=== PATIENT | male | born 1995 | race Caucasian/White ===

== ENCOUNTER 2018-04-09 19:31 | Inpatient (IN) ==
[2018-04-09] MEDS ORDERED: Lidocaine -MPF 1% 5 ML AMPUL ONE (20:08)
[2018-04-09] MEDS ORDERED: *HR* Midazolam HCl 2 MG/2 ML VIAL IVP ONE (20:12)
[2018-04-09] MEDS ORDERED: *HR* FentaNYL (PF) 100 MCG/2 ML VIAL IVP ONE ×2 (20:12→21:13)
--- NOTE | 2018-04-09 20:12 | Emergency Department Note ---
Disposition Clinical Impression: Pneumothorax Qualifiers: Pneumothorax type: spontaneous, primary Qualified Code(s): J93.11 - Primary spontaneous pneumothorax Disposition: Admitted As Inpatient Condition: Good Referrals: NONE,PCP [Primary Care Provider] - Forms: ED Satisfaction Letter SOB HPI - General Chief Complaint: ED Shortness of Breath/Dyspnea Stated Complaint: left pneumothorax per [facility] Time Seen by Provider: 04/09/18 19:54 Source: patient Mode of arrival: private vehicle Limitations: no limitations Nursing Notes Reviewed: Yes Vital Signs Reviewed: Yes - History of Present Illness 22-year-old male no medical history persisted the ER after findings of a left pneumothorax urgent care. Reports abrupt onset of left-sided chest pain and shortness of breath roughly 2 hours ago. Denies any trauma. No prior history of pneumothorax. He does not smoke. No recent coughing gagging or choking episodes. He was seen at urgent care had x-rays demonstrating a roughly 20% left pneumothorax. He reports that his symptoms did seem to worsen a little since the onset. No other complaints. Pt Subjective Complaint: shortness of breath, chest pain Onset (ago): hour(s) Severity: moderate Consistency/Duration: constant Improves with: nothing Worsens with: nothing Associated symptoms: Reports: chest pain Treatment prior to arrival: none Cough present: No - Related Data Home oxygen amount: none Home Medications Medication Instructions Recorded Confirmed No Known Home Drugs 04/09/18 04/09/18 Allergies Allergy/AdvReac Type Severity Reaction Status Date / Time No Known Allergies Allergy Verified 04/09/18 20:21 All systems ED: reviewed and negative except as stated. Constitutional: Denies: fever Cardiovascular: Reports: chest pain Respiratory: Reports: dyspnea. Denies: cough Gastrointestinal: Denies: nausea, vomiting Past Medical History - Past Medical History Attestation: Yes The following information was validated with the patient. Source: patient Medical history: Reports: non-contributory Surgical history: Reports: no surgical history Psychiatric history: Reports: no psych history - Social History Smoking Status: Current every day smoker Smokeless Tobacco Status: No Alcohol use: Reports: occasionally Drug use: Reports: none Physical Exam - General Limitations: no limitations General appearance: alert, in no apparent distress - Head Head exam: atraumatic, normocephalic - Eye Eye exam: Present: normal appearance - ENT ENT exam: normal exam - Neck Neck exam: Present: normal inspection - Chest Chest inspection: Present: normal inspection, symmetric chest wall rise - Respiratory Respiratory exam: Present: normal lung sounds bilaterally - Cardiovascular Cardiovascular exam: Present: regular rate, normal rhythm, normal heart sounds - Abdominal Exam Abdominal exam: Present: soft, Non-Tender. Absent: tenderness - Extremities Exam Extremities exam: Present: normal inspection, full ROM - Expanded Upper Extremity Exam Shoulder exam: Present: normal inspection, full ROM Arm exam: Present: normal inspection, full ROM Elbow exam: Present: normal inspection, full ROM Forearm/Wrist exam: Present: normal inspection, full ROM Hand exam: Present: normal inspection, full ROM - Expanded Lower Extremity Exam Hip/Pelvis exam: Present: normal inspection, full ROM Upper leg exam: Present: normal inspection, full ROM Knee exam: Present: normal inspection, full ROM Lower leg exam: Present: normal inspection, full ROM Ankle exam: Present: normal inspection, full ROM Foot/toe exam: Present: normal inspection, full ROM - Skin Skin exam: Present: warm, dry Course Course Narrative: Patient seen and examined. Vital signs reviewed. Imaging reviewed. Plan for left chest tube placement. Vital Signs Temperature 98.6 F 04/09/18 19:39 Pulse Rate 72 04/09/18 19:39 Respiratory Rate 20 04/09/18 19:39 Blood Pressure 150/80 04/09/18 19:39 O2 Sat by Pulse Oximetry 100 04/09/18 19:39 Temperature 98.6 F 04/09/18 19:39 Pulse Rate 61 04/09/18 21:33 Respiratory Rate 16 04/09/18 21:33 Blood Pressure 116/61 04/09/18 21:33 O2 Sat by Pulse Oximetry 100 04/09/18 21:33 Oxygen Delivery Oxygen Delivery Nasal Cannula Procedures - Chest Tube Chest Tube 1 Chest Tube Location: left Size of Tube (cm): 7 Chest Tube Prep: sterile drapes applied Local Anesthetic: lidocaine 2% Amount of Anesthesia Used (mL): 7 Incision Made With: #11 blade Post Procedure: sutured to skin, sterile dressing applied Tube Drainage: none Post Procedure CXR?: Yes Patient Tolerated Procedure: Yes Progress: Improvement of pneumothorax Shortness of Breath/Dyspnea - [facility] Narrative Medical decision making narrative: 22-year-old male presents for spontaneous pneumothorax from urgent care. Hemodynamically stable. Left pneumo dart tube inserted without complication. Pain controlled here. Admitted to the hospitalist service. - Radiology Data Radiology results reviewed: Yes I reviewed the patient's radiology results. Chest X-Ray 04/09/18 20:53 IMPRESSION: 1. Significant improvement with residual trace left apical pneumothorax status post left percutaneous chest tube. D/ / Star Kahn MD / Star Kahn MD Interpreting Provider: Star Kahn MD Rodolfo - Rodolfo Situation: Demographics, MOA Background: Presenting Complaint, Relevant PMH, Meds, & Allergies Assessment: Vital Signs, Course and respsone to treatment, Exam Concerns, Patient/Family Expectation, Pertinant Lab Results Recommendation: Barrier(s) to disposition, Recommendation based on pending studies, treatments, or consults Rodolfo Report Given to: Dr. Maryam Reynolds Repor Time: 21:37
[2018-04-09] MEDS ORDERED: Lidocaine -MPF 2% 5 ML VIAL INFILT ONE (20:14)
--- NOTE | 2018-04-09 21:00 | Emergency Department Note ---
Disposition Clinical Impression: Pneumothorax Qualifiers: Pneumothorax type: spontaneous, primary Qualified Code(s): J93.11 - Primary spontaneous pneumothorax Disposition: Admitted As Inpatient Condition: Good General Adult HPI - General Chief complaint: ED Shortness of Breath/Dyspnea Stated complaint: left pneumothorax per [facility] Time Seen by Provider: 04/09/18 19:54 Source: patient Mode of arrival: private vehicle Limitations: no limitations Nursing Notes Reviewed: Yes Vital Signs Reviewed: Yes - History of Present Illness Pain Scale: 3 - Related Data Home Medications Medication Instructions Recorded Confirmed No Known Home Drugs 04/09/18 04/09/18 Allergies Allergy/AdvReac Type Severity Reaction Status Date / Time No Known Allergies Allergy Verified 04/09/18 20:21 Constitutional: Denies: fever Cardiovascular: Reports: chest pain Respiratory: Reports: dyspnea. Denies: cough Gastrointestinal: Denies: nausea, vomiting Past Medical History - Past Medical History Medical history: Reports: non-contributory Surgical history: Reports: no surgical history Psychiatric history: Reports: no psych history - Social History Smoking Status: Current every day smoker Smokeless Tobacco Status: No Alcohol use: Reports: occasionally Drug use: Reports: none Physical Exam - General Limitations: no limitations General appearance: alert, in no apparent distress Course Vital Signs Temperature 98.6 F 04/09/18 19:39 Pulse Rate 72 04/09/18 19:39 Respiratory Rate 20 04/09/18 19:39 Blood Pressure 150/80 04/09/18 19:39 O2 Sat by Pulse Oximetry 100 04/09/18 19:39 Temperature 98.6 F 04/09/18 19:39 Pulse Rate 61 04/09/18 21:33 Respiratory Rate 16 04/09/18 21:33 Blood Pressure 116/61 04/09/18 21:33 O2 Sat by Pulse Oximetry 100 04/09/18 21:33 Oxygen Delivery Oxygen Delivery Nasal Cannula Medical Decision Making - Radiology Data Radiology results reviewed: Yes I reviewed the patient's radiology results. Chest X-Ray 04/09/18 20:53 IMPRESSION: 1. Significant improvement with residual trace left apical pneumothorax status post left percutaneous chest tube. D/ / Star Kahn MD / Star Kahn MD Interpreting Provider: Star Kahn MD - EKG Data EKG #1 EKG attestation: Yes I reviewed and interpreted this EKG. EKG results narrative: EKG obtained at the urgent care clinic prior to arrival here was reviewed by me and showed a sinus rhythm with ventricular rate of 80. No ST segment elevation or depression. No arrhythmia or ectopy. Normal EKG. Attestation Statement - Attestation Attestation: I, Jim Murphy MD, personally evaluated this patient and discussed their management with the resident physician. I reviewed the resident's note and agree with the documented findings, medical decision making, and plan of care. 22-year-old male transferred here from the urgent care clinic for a spontaneous left pneumothorax. Patient presented there with acute onset earlier this afternoon of sharp left-sided chest pain or shortness of breath. No history of any injury or trauma. No prior history of pneumothorax. Patient denies any cough or fever. On examination patient is a well-developed well-nourished well-appearing male in no acute distress. He is alert and oriented 3. There is no cyanosis or diaphoresis. Breath sounds are very minimally decreased in the left upper lung. No rales or wheezes. Heart regular rate and rhythm. No murmur or ectopy. Abdomen soft and nontender with normal bowel sounds. A dark catheter was inserted into the left hemithorax by the resident, Dr. Cornejo, and the medical student assisting under my direct supervision. He tolerated the procedure well. Postprocedure x-ray showed good placement of the catheter with reexpansion of the lung. The hospitalist, Dr. Francisco, was consulted and accepted admission of the patient.
[2018-04-09] MEDS ORDERED: Ketorolac 30 MG/ML VIAL IVP ONE (22:54)
[2018-04-09] MEDS ORDERED: Naloxone 0.4 MG/ML INJ IVP PRN (22:56)
[2018-04-09] MEDS ORDERED: Ringers Solution, Lactated 1,000 ML IVC SCH (23:00)
--- NOTE | 2018-04-09 23:37 | Internal Med History&Physical ---
Date of Encounter: 04/09/18 Time of Encounter: 23:35 Internal Medicine - H&P: HPI Chief complaint: chest pain Admitted From: Home Plans for Post Hospital Care: Home History of present illness: Mr. Carrillo is a 22 year old male who denies any past medical history who presents on transfer from the urgent care clinic where he presented with acute onset left-sided chest pain with shortness of breath that commenced in the afternoon while he was driving. He denies a smoking history, history any injury or trauma to his chest wall. He denies coughing or having fever or congestion. In the clinic he was seen on x-ray to have pneumothorax that was initially 5% and progress to 20%. He was transferred here for further care where a chest tube was placed without any acute complications with adequate reexpansion of the lung seen on subsequent chest x-rays. He is now admitted for further observation. At this time he reports feeling well and states that he has moderate chest pain when he takes deep breaths only comfortable at rest. He denies any comorbidities, prior occasional smoker and again no trauma. Past Med Surg Social Fam HX - Past Medical History Medical history: non-contributory Psychiatric history: no psych history - Past Surgical History Surgical History: no surgical history - Social History Smoking Status: Current every day smoker Smokeless Tobacco Status: No Alcohol use: occasionally Drug use: none Internal Medicine - H&P: Meds No Known Home Drugs 04/09/18 [History] 3 Allergy/AdvReac Type Severity Reaction Status Date / Time No Known Allergies Allergy Verified 04/09/18 20:21 All Systems PM: A 10-system review of systems was performed and is negative for pertinent findings except as documented above in the HPI. - Constitutional Vitals: Temp Pulse Resp BP Pulse Ox 98.3 F 54 15 129/77 99 04/09/18 22:52 04/09/18 22:52 04/09/18 22:52 04/09/18 22:52 04/09/18 22:52 Exam: Vitals: Reviewed General: Well-developed male lying comfortably in bed in no acute distress. Skin: Warm and supple. HEENT: Moist mucous membranes. No conjunctivae pallor. Neck: No lymphadenopathy. No JVD. No carotid bruits. No palpable thyroid. Chest: Reduced thoracic expansion with no wheezes, rales or rhonchi auscultated. Catheter noted in the left upper chest wall attached to water seal with suction. Heart: Normal S1 & S2; rhythmic. No rubs or murmurs. Abdomen: Non-distended, soft and non-tender to palpation. No peritoneal reaction. Liver is normal in size. Spleen is not palpable. Extremities: No clubbing, cyanosis or edema. No calf tenderness. Normal distal pulses. Neurological: Awake, alert and oriented to person, place and time. No focal deficits. Psych: Appropriate affect and coherent speech - Assessment and plan (1) Pneumothorax on left Current Visit: No Status: Acute Assessment and plan: Spontaneously induced. No apparent risk factors. -Placed on close observation -Consult pulmonary for chest tube management -Pain control -IV fluids for insensible losses -Repeat chest x-ray in the morning. -Supplemental oxygen as needed and telemetry monitoring. (2) DVT prophylaxis Current Visit: Yes Status: Acute Assessment and plan: Subcutaneous heparin ordered. - Time Spent With Patient Total time spent is greater than 50% in coordination of care (as documented) at patient's floor/unit and/or counseling patient: 25 - 35 minutes
[2018-04-10] MEDS: *HR* OxyCODONE/APAP 5/325 TABLET PO PRN ×4 (00:13→23:53)
[2018-04-10] MEDS ORDERED: *HR* Morphine 2 MG/ML SYRINGE IVP ONE (01:22)
[2018-04-10 01:45] LABS: Basophils % 0.3 %; Eosinophils # 0.2 K/mcL (0.0-0.6); Eosinophils % 1.4 %; Hematocrit 41.2 % (37.5-50.1); Hemoglobin 14.4 g/dL (12.9-16.9); Immature Granulocytes % 0.3 % (0-4); Lymphocytes # 2.7 K/mcL (0.6-4.6); Lymphocytes % 23.8 %; Mean Corpuscular Hemoglobin 30.8 pg (28.0-33.3); Mean Corpuscular Volume 88.2 fL (83.0-100.0); Mean Platelet Volume 10.1 fL (9.4-12.4); Monocytes # 0.9 K/mcL (0.0-1.3); Monocytes % 7.6 %; Neutrophils # 7.6 K/mcL (1.6-8.9); Platelet Count 266 K/mcL (140-400); Red Blood Count 4.67 M/mcL (4.19-5.50); Red Cell Distribution Width 11.7 % (11.5-14.5); Segmented Neutrophils % 66.6 %
[2018-04-10 01:50] LABS: Prothrombin Time 11.7 Seconds (9.4-12.1)
[2018-04-10 01:53] LABS: Activated Partial Thrombo Time 35.7 Seconds (26.0-36.0)
[2018-04-10 02:10] LABS: Alanine Aminotransferase 30 Units/L (7-52); Albumin 4.5 g/dL (3.5-5.7); Alkaline Phosphatase 73 Units/L (34-104); Aspartate Amino Transferase 20 Units/L (13-39); BUN/Creatinine Ratio 13 (6-26); Bilirubin,Total 0.6 mg/dL (0.3-1.0); Blood Urea Nitrogen 12 mg/dL (6-20); Calcium 9.7 mg/dL (8.6-10.3); Carbon Dioxide 26 mEq/L (23-29); Chloride 104 mEq/L (98-107); Globulin 2.3 g/dL (2.4-3.5); Glucose 173 mg/dL (70-105); Osmolality,Calculated 292 (280-300); Potassium 3.7 mEq/L (3.5-5.1); Sodium 139 mEq/L (136-145); Total Protein 6.8 g/dL (6.4-8.9); eGFR For Non-African Americans > 60 (> 60)
[2018-04-10 03:10] LABS: Amphetamine Screen,Urine Negative ng/mL (Cutoff=1000); Barbiturate Screen,Urine Negative ng/mL (Cutoff=200); Benzodiazepines Screen,Urine Positive ng/mL (Cutoff=200); Cannabinoid Screen,Urine Negative ng/mL (Cutoff = 50); Cocaine Screen,Urine Negative ng/mL (Cutoff= 300); Opiate Screen,Urine Negative ng/mL (Cutoff=300); Phencyclidine Screen,Urine Negative ng/mL (Cutoff=25)
[2018-04-10] MEDS: *HR* Heparin 5,000 UNIT/ML VIAL SQ SCH ×2 (05:32→18:19)
--- NOTE | 2018-04-10 08:15 | Cardiothoracic Consult Note ---
Date of Encounter: 04/10/18 Time of Encounter: 12:45 Assessment and Plan (1) Pneumothorax Current Visit: Yes Status: Acute The patient is a 22-year-old otherwise healthy man who had sudden onset of left- sided chest pain and shortness of breath while driving yesterday. His evaluation at an urgent care facility revealed a left spontaneous pneumothorax. The pneumothorax progressed and he was transferred to [facility] for chest tube insertion. Currently, the chest tube has no air leak. Chest tube should remain on suction until the air leak stops and then placed to waterseal prior to removal. The assessment and plan as outlined above was discussed with the patient and/or family members who expressed understanding and agreement. All questions were answered. Pneumothorax type: spontaneous, primary - History of Present Illness Consult date: 04/10/18 Requesting physician: Brooks Francisco Consult reason: Chest tube management Chief complaint: Left spontaneous pneumothorax History of present illness: Mr. Carrillo is a 22 year old otherwise healthy man who experienced sudden onset of left sided chest pain and shortness of breath while driving yesterday. The patient was evaluated at an urgent care facility found to have a left spontaneous pneumothorax. Initially, the pneumothorax measured approximately 5 % of the chest volume; however, progressed to 20%. He was transferred to [facility] for further care. A chest tube was inserted in the emergency department with near complete resolution of the left spontaneous pneumothorax. I have been asked to follow the patient for chest tube management. Past Med Surg Social Fam HX - Past Medical History Medical history: non-contributory Psychiatric history: no psych history - Past Surgical History Surgical History: no surgical history - Social History Smoking Status: Former smoker Smokeless Tobacco Status: No Alcohol use: occasionally Drug use: none Occupational status: employed Current living situation: Home - Independent Activity Level: Independent ambulation, Very active Recent Out of Country Travel Within the Last 8 Weeks: No Exposure or Possible Exposure to Illness During Travel: No - Family History Grandmother Hx Family Cardiac Disorders: Yes ([place]) Medications and Allergies No Known Home Drugs 04/09/18 [History] 3 Allergy/AdvReac Type Severity Reaction Status Date / Time No Known Allergies Allergy Verified 04/09/18 20:21 All Systems Review: The remainder of the systems were reviewed and are negative Physical Examination Vital Signs, Last 4 Hours Pulse Resp BP Pulse Ox 04/10/18 08:06 65 15 110/61 97 General: Conversant, No Apparent Distress Neck: No JVD Cardiac: Reg Rate and Rhythm, Normal S1 and S2 Lungs: Normal Breath Sounds, No Wheeze, Rales, Rhonchi Neuro: Alert and responsive, No focal deficits noted, Motor nerves intact, Sensory nerves intact Vascular: Normal capillary refill Skin: No rashes noted on visualized skin Musculoskeletal: No Chest Wall Tenderness Extremities: No Clubbing, No Cyanosis, No Edema, Normal Pulses Results 04/10/18 01:19 04/10/18 01:19 Lab Results, Last 24 hours 04/10/18 04/10/18 04/10/18 01:19 01:19 01:19 WBC 11.4 H Hgb 14.4 Hct 41.2 Plt Count 266 INR 1.0 APTT 35.7 Sodium 139 Potassium 3.7 Chloride 104 Carbon Dioxide 26 BUN 12 Creatinine 0.90 Glucose 173 H Calcium 9.7 Total Bilirubin 0.6 AST 20 ALT 30 Alkaline Phosphatase 73 - Imaging Chest Xray: image reviewed (Normal cardiac size. Small left apical pneumothorax ) Consult Discharge Plan - Plan Referrals: NONE,PCP [Primary Care Provider] -
[2018-04-10] MEDS: Ketorolac 30 MG/ML VIAL IVP PRN ×2 (12:58→19:48)
--- NOTE | 2018-04-10 13:17 | Internal Med Progress Note ---
<Trinity Edouard - Last Filed: 04/10/18 13:38> Hospitalist Progress Note - Encounter Date of Encounter: 04/10/18 Time of Encounter: 13:14 - Subjective Interval History: Mr. Gonzales is a 22 y/o M with no past medical history presenting to [facility] on 04/09 for SOB and left sided chest pain. He was found to have a left sided pneumothorax with rapid progression from 5% to 20% so a chest tube was inserted in the ED with significant improvement in his symptoms. Patient is doing well today, mild soreness in area of the tube placement rated 4 /10. States he is not yet hungry but will attempt eating. ROS GEN - feels fatigued. Denies fevers, chills HEENT - denies headache, vision changes, hearing changes CV - denies SOB, CP, Palpitations RESP - Pain with deep breath. Denies coughing, wheezing, productive cough. GI - denies nausea, vomiting, constipation, diarrhea. - denies difficulty urinating, hematuria NEURO - denies loss of sensation, paresthesias MSK - denies joint pain - Exam Vitals: Temp Pulse Resp BP Pulse Ox 98.1 F 59 14 134/86 100 04/10/18 11:45 04/10/18 11:45 04/10/18 11:45 04/10/18 11:45 04/10/18 11:45 Exam: General: Conversant, No Apparent Distress, able to speak in full sentences and follow commands, not on nasal cannula Neck: No JVD, trachea midline HEENT: PERRL, normocephalic, atraumatic Cardiac: Reg Rate and Rhythm, Normal S1 and S2, No murmurs appreciated Pulmonary: Normal Breath Sounds, No Wheezes, Rales, or Rhonchi, Not in respiratory distress, Chest tube with 4 sided dressing on left chest, connected to wall suction, no crepitus or Abdomen: soft, tontender, no bruits, no guarding Skin: No rashes noted on visualized skin Musculoskeletal: No Chest Wall Tenderness Extremities: No Clubbing, No Cyanosis, No Edema, Normal Pulses Psych: Normal mood, pleasant, conversant - Assessment and Plan (1) Pneumothorax Current Visit: Yes Status: Acute Assessment and Plan: * CT surgery recommendations 2-3 days continued wall suction then trial water sealed tube prior to tube removal * Repeat X-ray in AM for continued monitoring * Chest tube inserted 04/09/18 in ED. Repeat Xray this morning, 04/10/18 showed improvement in the pneumothorax with residual small apical pneumo * PTX possibly secondary to thin body habitus, no features concerning for marfanoid body habitus * Pain controlled with oxycodone 5mg 1-2 q 6 hours prn and toradol 30mg q 6 prn. * Will monitor for opiate constipation * Patient O2 sat is between 95-100 on room air, not requiring supplemental oxygen, will continue to monitor * D/c fluids as patient is drinking well and encouraged diet (2) DVT prophylaxis Current Visit: Yes Status: Acute Assessment and Plan: * Continues on heparin 5000U q 12h - Time Spent with Patient Total time spent is greater than 50% in coordination of care (as documented) at patient's floor/unit and/or counseling patient: 25 - 35 minutes Plan of Care Discussed with: family Internal Medicine: Result - Labs CBC & Chem 7: 04/10/18 01:19 04/10/18 01:19 Labs: Short CBC 04/10/18 Range/Units 01:19 WBC 11.4 H (4.3-11.1) K/mcL Hgb 14.4 (12.9-16.9) g/dL Hct 41.2 (37.5-50.1) % Plt Count 266 (140-400) K/mcL Neutrophils # 7.6 (1.6-8.9) K/mcL BMP 04/10/18 01:19 Sodium 139 Potassium 3.7 Chloride 104 Carbon Dioxide 26 BUN 12 Creatinine 0.90 Glucose 173 H Calcium 9.7 Liver Function 04/10/18 Range/Units 01:19 Total Bilirubin 0.6 (0.3-1.0) mg/dL AST 20 (13-39) Units/L ALT 30 (7-52) Units/L Alkaline Phosphatase 73 (34-104) Units/L Albumin 4.5 (3.5-5.7) g/dL - ABG Interpretation ABG results: PT/INR, D-dimer PT 11.7 Seconds (9.4-12.1) 04/10/18 01:19 - Impressions Impressions Chest X-Ray 04/10/18 07:00 IMPRESSION: Tiny residual left apical pneumothorax with no detrimental change. D/ / Star Weathers MD / Star Weathers MD Interpreting Provider: Star Weathers MD Consult Discharge Plan - Plan Referrals: NONE,PCP [Primary Care Provider] - <Anurag Murray - Last Filed: 04/10/18 16:30> Hospitalist Progress Note - Encounter Date of Encounter: 04/10/18 - Exam Vitals: Temp Pulse Resp BP Pulse Ox 98.5 F 60 16 116/72 98 04/10/18 16:05 04/10/18 16:05 04/10/18 16:05 04/10/18 16:05 04/10/18 16:05 - Time Spent with Patient Total time spent is greater than 50% in coordination of care (as documented) at patient's floor/unit and/or counseling patient: Internal Medicine: Result - Labs CBC & Chem 7: 04/10/18 01:19 04/10/18 01:19 Labs: Short CBC 04/10/18 Range/Units 01:19 WBC 11.4 H (4.3-11.1) K/mcL Hgb 14.4 (12.9-16.9) g/dL Hct 41.2 (37.5-50.1) % Plt Count 266 (140-400) K/mcL Neutrophils # 7.6 (1.6-8.9) K/mcL BMP 04/10/18 01:19 Sodium 139 Potassium 3.7 Chloride 104 Carbon Dioxide 26 BUN 12 Creatinine 0.90 Glucose 173 H Calcium 9.7 Liver Function 04/10/18 Range/Units 01:19 Total Bilirubin 0.6 (0.3-1.0) mg/dL AST 20 (13-39) Units/L ALT 30 (7-52) Units/L Alkaline Phosphatase 73 (34-104) Units/L Albumin 4.5 (3.5-5.7) g/dL - ABG Interpretation ABG results: PT/INR, D-dimer PT 11.7 Seconds (9.4-12.1) 04/10/18 01:19 - Impressions Impressions Chest X-Ray 04/10/18 07:00 IMPRESSION: Tiny residual left apical pneumothorax with no detrimental change. D/ / Star Weathers MD / Star Weathers MD Interpreting Provider: Star Weathers MD - Attending Attestation I have seen and examined this patient independently. I have discussed with resident physician Dr. Beyer regarding the management plan. Agree with the documentation. <Trinity Edouard - Last Filed: 04/10/18 13:38> (1) Pneumothorax Qualifiers: Pneumothorax type: spontaneous, primary Qualified Code(s): J93.11 - Primary spontaneous pneumothorax
[2018-04-11] MEDS: *HR* Heparin 5,000 UNIT/ML VIAL SQ SCH (05:36)
[2018-04-11] MEDS: Ketorolac 30 MG/ML VIAL IVP PRN (08:45)
[2018-04-11] MEDS ORDERED: *HR* OxyCODONE Immed Rel 5 MG TABLET PO PRN (11:14)
[2018-04-11] MEDS: Acetaminophen IV 1,000 MG/100 ML INFUS..BTL IVPB SCH ×3 (11:42→23:19)
--- NOTE | 2018-04-11 11:58 | Internal Med Progress Note ---
Hospitalist Progress Note - Encounter Date of Encounter: 04/11/18 Time of Encounter: 09:00 - Subjective Interval History: Patient has cough, no shortness of breath, minimal chest wall pain due to chest tube. No further complaints. - Exam Vitals: Temp Pulse Resp BP Pulse Ox 98.4 F 61 18 102/57 96 04/11/18 10:56 04/11/18 10:56 04/11/18 10:56 04/11/18 10:56 04/11/18 10:56 Exam: Patient is awake alert, oriented 3, in no acute distress. HEENT: NC/AT, PERRL Neck: Supple, no LAD Lungs: CTA, no wheezing, breath sound equal B/L, chest tube in place. Heart: S1S2, RRR Abd: Soft, NT, BS normal. Ext: ROM wnl, No pedal edema Neuro: AAO x 3, no focal neuro deficit - Assessment and Plan (1) DVT prophylaxis Current Visit: Yes Status: Acute Assessment and Plan: Heparin sc (2) Pneumothorax Current Visit: Yes Status: Acute Assessment and Plan: Chest tube was placed. Repeated chest x-ray shows bilateral lung expanded well. Thoracic surgeon is on case for chest tube management. - Time Spent with Patient Total time spent is greater than 50% in coordination of care (as documented) at patient's floor/unit and/or counseling patient: 30 minutes 25 - 35 minutes Plan of Care Discussed with: patient Internal Medicine: Result - Labs CBC & Chem 7: 04/10/18 01:19 04/10/18 01:19 - ABG Interpretation ABG results: PT/INR, D-dimer PT 11.7 Seconds (9.4-12.1) 04/10/18 01:19 - Impressions Impressions Chest X-Ray 04/11/18 07:00 IMPRESSION: Left-sided chest tube stable in position. Currently, no significant pneumothorax is identified. D/ / 04/11/2018 08:22:09 Jorge Mccord MD / [facility] Interpreting Provider: Jorge Mccord MD Consult Discharge Plan - Plan Referrals: NONE,PCP [Primary Care Provider] - (2) Pneumothorax Qualifiers: Pneumothorax type: spontaneous, primary Qualified Code(s): J93.11 - Primary spontaneous pneumothorax
--- NOTE | 2018-04-11 13:16 | Cardiothoracic Progress Note ---
Date of Encounter: 04/11/18 Time of Encounter: 13:13 - Subjective Procedure(s) Performed: The patient is a 22-year-old otherwise healthy man who had sudden onset of left- sided chest pain and shortness of breath while driving and was found at an urgent care facility to have a left spontaneous pneumothorax. The pneumothorax progressed and he was transferred to [facility] for chest tube insertion. Currently, the chest tube has no air leak. His chest tube was placed to water seal. Will plan a PA and Lat CXR tomorrow and possible chest tube removal tomorrow. Vital Signs, Last 4 Hours Temp Pulse Resp BP Pulse Ox 04/11/18 10:56 98.4 F 61 18 102/57 96 Oxgyen Flow Rate Oxygen Flow Rate (LPM) 2 Weight 04/09/18 04/10/18 04/11/18 23:59 23:59 23:59 Weight 61.4 kg 60.8 kg - Physical Examination Chest tubes: Other (Dressing clean and dry, no air leak, placed to water seal) - Labs 04/10/18 01:19 04/10/18 01:19 Consult Discharge Plan - Plan Referrals: NONE,PCP [Primary Care Provider] -
[2018-04-11] MEDS: *HR* OxyCODONE Immed Rel 5 MG TABLET PO PRN (13:21)
[2018-04-11] MEDS ORDERED: *HR* Heparin 5,000 UNIT/ML VIAL SQ SCH (18:00)
[2018-04-11] MEDS ORDERED: Sennosides 8.6 MG TABLET PO PRN (20:53)
[2018-04-12] MEDS: *HR* OxyCODONE Immed Rel 5 MG TABLET PO PRN (02:34)
[2018-04-12 04:47] LABS: Basophils # 0.1 K/mcL (0.0-0.2); Basophils % 0.6 %; Eosinophils # 0.4 K/mcL (0.0-0.6); Eosinophils % 3.5 %; Hematocrit 39.6 % (37.5-50.1); Hemoglobin 13.7 g/dL (12.9-16.9); Immature Granulocytes % 0.3 % (0-4); Lymphocytes # 3.8 K/mcL (0.6-4.6); Lymphocytes % 32.5 %; Mean Corpuscular HGB Conc 34.6 g/dL (31.6-35.5); Mean Corpuscular Volume 89.6 fL (83.0-100.0); Mean Platelet Volume 10.1 fL (9.4-12.4); Monocytes # 0.9 K/mcL (0.0-1.3); Monocytes % 7.6 %; Neutrophils # 6.4 K/mcL (1.6-8.9); Platelet Count 240 K/mcL (140-400); Red Blood Count 4.42 M/mcL (4.19-5.50); Red Cell Distribution Width 11.5 % (11.5-14.5); Segmented Neutrophils % 55.5 %
[2018-04-12 04:59] LABS: BUN/Creatinine Ratio 13 (6-26); Blood Urea Nitrogen 12 mg/dL (6-20); Calcium 9.6 mg/dL (8.6-10.3); Carbon Dioxide 27 mEq/L (23-29); Chloride 107 mEq/L (98-107); Glucose 92 mg/dL (70-105); Osmolality,Calculated 291 (280-300); Potassium 3.7 mEq/L (3.5-5.1); Sodium 141 mEq/L (136-145); eGFR For Non-African Americans > 60 (> 60)
[2018-04-12] MEDS: Acetaminophen IV 1,000 MG/100 ML INFUS..BTL IVPB SCH (06:04)
[2018-04-12 08:00] VITALS: BP 102/48
--- NOTE | 2018-04-12 10:23 | Cardiothoracic Progress Note ---
Date of Encounter: 04/12/18 Time of Encounter: 10:21 - Subjective Procedure(s) Performed: Patient was seen and examined. In summary, the patient is a 22-year-old otherwise healthy man who had sudden onset of left-sided chest pain and shortness of breath while driving and was found at an urgent care facility to have a left spontaneous pneumothorax. The pneumothorax progressed and he was transferred to [facility] for chest tube insertion. Yesterday, the chest tube has no air leak and his chest tube was placed to water seal. This morning the patient has no new complaints and his chest tube was without evidence of air leak. His chest x-ray yesterday was without evidence of pneumothorax. The chest tube was removed uneventfully at the bedside this morning and plan is for a PA and lateral chest x-ray. If his x-ray is stable the patient can be discharged home today with instructions leave his dressing on for 24 hours and change on a when necessary basis. His follow-up with his family physician. He understands that this can recur and if so he may require surgical intervention versus a repeat P tube thoracostomy. Vital Signs, Last 4 Hours Temp Pulse Resp BP Pulse Ox 04/12/18 07:54 97.8 F 46 17 102/48 98 Oxgyen Flow Rate Oxygen Flow Rate (LPM) 2 Weight 04/10/18 04/11/18 04/12/18 23:59 23:59 23:59 Weight 61.4 kg 60.8 kg 64.13 kg - Physical Examination Chest tubes: Other (Chest tube removed at bedside) - Labs 04/12/18 04:14 04/12/18 04:14 Lab Results, Last 24 hours 04/12/18 04/12/18 04:14 04:14 WBC 11.6 H Hgb 13.7 Hct 39.6 Plt Count 240 Sodium 141 Potassium 3.7 Chloride 107 Carbon Dioxide 27 BUN 12 Creatinine 0.90 Glucose 92 Calcium 9.6 - Imaging Chest Xray: pending Consult Discharge Plan - Plan Referrals: NONE,PCP [Primary Care Provider] -
--- NOTE | 2018-04-12 11:27 | Discharge Summary ---
Date of Encounter: 04/12/18 Time of Encounter: 11:00 - Discharge Diagnosis (1) DVT prophylaxis Priority: Secondary Status: Acute (2) Pneumothorax Priority: Primary Status: Acute Qualifiers: Pneumothorax type: spontaneous, primary Qualified Code(s): J93.11 - Primary spontaneous pneumothorax Hospital course: Mr. Carrillo is a 22 year old male admitted for spontaneous pneumothorax. Patient was placed the chest tube in the emergency room. Cardiothoracic surgeon consult follow-up as patient in the hospital. Chest tube was removed uneventfully this morning. Repeat chest x-ray shows no pneumothorax. Patient will discharge home today. I have seen and examined this patient today. Patient has minimal chest wall pain due to chest tube. Otherwise no complaints. Vitals are stable. Stable to discharge home and follow-up with PCP as outpatient. Ibuprofen by mouth 400 mg every 6 hours when necessary for pain prescribed. - Time Spent with Patient Total time spent providing and/or coordinating discharge services: 28 minutes Less than 30 minutes - Discharge Medications Home Medications: Ibuprofen 400 mg PO Q6H PRN #12 tablet 04/12/18 [Rx] Allergies/Adverse Reactions: 3 Allergy/AdvReac Type Severity Reaction Status Date / Time No Known Allergies Allergy Verified 04/09/18 20:21 Date of admission: 04/09/18 22:56 Primary care physician: PCP NONE Consults: 04/10/18 07:55 Consult to Cardiothoracic Surgery [CONS] Routine Consulting Provider: Cardiothoracic Surgery Marielle Reason for Consult: spontanous pneumothorax Call Completed: Yes Discharging clinician: Anurag Murray Anticipated date of discharge: 04/12/18 - Constitutional Vitals: Temp Pulse Resp BP Pulse Ox 97.8 F 46 17 102/48 98 04/12/18 07:54 04/12/18 07:54 04/12/18 07:54 04/12/18 07:54 04/12/18 07:54 General appearance: Present: A&O X 3, no acute distress, answers questions appropriately - Head Head exam: Present: atraumatic, normocephalic - Eye Eye exam: Present: PERRL, conjuntiva pink, sclera anicteric Pupils: Present: PERRL - Neck Neck exam general surgery: Present: supple, trachea midline. Absent: lymphadenopathy - Respiratory Respiratory exam: Present: CTAB. Absent: accessory muscle use, rales, rhonchi, wheezes - Cardiovascular Cardiovascular exam: Present: RRR, +S1, +S2. Absent: diastolic murmur, gallop, rubs, systolic murmur - GI/Abdominal GI/Abdominal exam: Present: normal bowel sounds, soft, no peritoneal signs. Absent: distended, tenderness - Extremities Exam Extremities exam: Present: warm, radial pulses palpable and symmetrical. Absent : calf tenderness, cyanotic, pedal edema - Neurological Exam Neurological exam: Present: CN II-XII intact, oriented X3, no focal deficits. Absent: pronater drift, facial droop, speech deficit - Skin Skin exam: Present: dry, intact - Patient Status Disposition: Home, Self-Care Condition: Good Functional capacity at discharge: independent ambulation Overall status at discharge: patient is back to baseline - Discharge Instructions Follow Up With: NONE,PCP [Primary Care Provider] - - Diet and Activity Activity: increase activity as tolerated Diet: advance to your usual diet
== END 2018-04-12 12:24 | disposition home or self-care (01) | DRG 201 ==
LOC: EMEROO 19:31 → 2NENU 19:31
PROVIDERS: ADMIT Internal Medicine; ATTEND Internal Medicine